=== PATIENT | male | born 1930 | race Caucasian/White ===

== ENCOUNTER 2018-10-25 21:04 | Observation (INO) ==
[2018-10-25 21:48] LABS: Basophils % 0.3 %; Eosinophils # 0.1 K/mcL (0.0-0.6); Eosinophils % 0.7 %; Hematocrit 38.3 % (37.5-50.1); Hemoglobin 12.8 g/dL (12.9-16.9); Immature Granulocytes % 1.9 % (0-4); Lymphocytes # 1.8 K/mcL (0.6-4.6); Lymphocytes % 25.9 %; Mean Corpuscular HGB Conc 33.4 g/dL (31.6-35.5); Mean Corpuscular Hemoglobin 31.1 pg (28.0-33.3); Mean Platelet Volume 8.6 fL (9.4-12.4); Monocytes # 1.2 K/mcL (0.0-1.3); Neutrophils # 3.7 K/mcL (1.6-8.9); Platelet Count 256 K/mcL (140-400); Red Blood Count 4.12 M/mcL (4.19-5.50); Red Cell Distribution Width 12.2 % (11.5-14.5); Segmented Neutrophils % 54.2 %; White Blood Count 6.8 K/mcL (4.3-11.1)
[2018-10-25 21:55] LABS: INR 1.1; Prothrombin Time 12.4 Seconds (9.4-12.1)
[2018-10-25 21:57] LABS: Activated Partial Thrombo Time 36.6 Seconds (26.0-36.0)
[2018-10-25 22:10] LABS: Alanine Aminotransferase 20 Units/L (7-52); Albumin 4.2 g/dL (3.5-5.7); Albumin/Globulin Ratio 1.2 (1.1-2.2); Alkaline Phosphatase 122 Units/L (34-104); Aspartate Amino Transferase 20 Units/L (13-39); BUN/Creatinine Ratio 14 (6-26); Bilirubin,Direct 0.1 mg/dL (0.0-0.2); Bilirubin,Indirect 0.5 mg/dL (0.0-1.2); Bilirubin,Total 0.6 mg/dL (0.3-1.0); Blood Urea Nitrogen 25 mg/dL (8-23); Calcium 9.2 mg/dL (8.6-10.3); Carbon Dioxide 25 mEq/L (23-29); Chloride 98 mEq/L (98-107); Globulin 3.4 g/dL (2.4-3.5); Glucose 101 mg/dL (70-105); Magnesium 1.9 mg/dL (1.6-2.6); Osmolality,Calculated 287 (280-300); Phosphorous 2.6 mg/dL (2.7-4.5); Potassium 4.5 mEq/L (3.5-5.1); Sodium 136 mEq/L (136-145); Total Protein 7.6 g/dL (6.4-8.9); Troponin I < 0.03 ng/mL (< 0.04); eGFR For African Americans 44 (> 60); eGFR For Non-African Americans 36 (> 60)
--- NOTE | 2018-10-25 23:28 | Emergency Department Note ---
Disposition Clinical Impression: Hypoxia Fever Qualifiers: Fever type: unspecified Qualified Code(s): R50.9 - Fever, unspecified Fatigue Qualifiers: Fatigue type: unspecified Qualified Code(s): R53.83 - Other fatigue Disposition: Admitted As Inpatient Condition: Good Time of Disposition: 02:07 General Adult HPI - General Chief complaint: ED Urogenital-Male Stated complaint: fever, urinary symptoms Time Seen by Provider: 10/25/18 21:09 Source: patient, family Mode of arrival: private vehicle Limitations: no limitations Nursing Notes Reviewed: Yes Vital Signs Reviewed: Yes - History of Present Illness HPI Narrative: 87-year-old male with past medical history of prostate disease, recently diagnosed with a UTI approximately 1 week ago placed on Keflex, states that he has felt weak, feverish, and extremely fatigued. Patient states he has been sleeping upwards of 20 hours a day. Patient is concerned that he may have an infection, and at bedside says he has not really been acting like himself. Patient is complaining of fevers at home, not being able to do his normal activities. Pain Scale: 2 - Related Data Home Medications Medication Instructions Recorded Confirmed Ascorbic Acid [Vitamin C] 1 tab PO DAILY 10/26/18 10/26/18 Cholecalciferol (D-3) [Vitamin D] 5,000 unit PO DAILY 10/26/18 10/26/18 Fexofenadine/Pseudoephedrine 1 each PO DAILY 10/26/18 10/26/18 [Rosamaria-D 24 Hour Tablet] Gemfibrozil [Lopid] 600 mg PO DAILY 10/26/18 10/26/18 Lisinopril [Zestril] 40 mg PO HS 10/26/18 10/26/18 [place]-3/Dha/Epa/Fish Oil [[place] 3 1 tab PO DAILY 10/26/18 10/26/18 500 Softgel] Saw [place] Fruit [Saw [place]] 450 mg PO DAILY 10/26/18 10/26/18 Selenium 100 mcg PO DAILY 10/26/18 10/26/18 Tamsulosin HCl [Flomax] 0.4 mg PO DAILY 10/26/18 10/26/18 Ubidecarenone [Co Q-10] 100 mg PO DAILY 10/26/18 10/26/18 Vitamin E 400 unit PO DAILY 10/26/18 10/26/18 Allergies Allergy/AdvReac Type Severity Reaction Status Date / Time morphine AdvReac Hallucinati Verified 10/25/18 21:07 ng Review of Systems: In addition to that documented in the HPI above, the additional ROS was obtained: Constitutional: Reports fevers and chills and fatigue Eyes: Denies vision changes ENMT: Denies sore throat CV: Denies chest pain Resp: Reports exertional SOB GI: Denies vomiting or diarrhea : Denies painful urination Reports difficulty initiating stream, chronic MSK: Denies recent trauma Skin: Denies new rashes Neuro: Denies new numbness or tingling or weakness Endocrine: Denies unexpected weight loss Heme: Denies bleeding disorders Past Medical History - Past Medical History Attestation: Yes The following information was validated with the patient. Medical history: Reports: cancer, hypertension, renal disease, other Psychiatric history: Reports: no psych history - Social History Smoking Status: Never smoker Alcohol use: Reports: none Drug use: Reports: none Physical Exam General: A&O x 3. No acute distress. Well developed, well nourished. Head: atraumatic, normocephalic. ENT: No conjunctival injection, no scleral icterus. PERRLA. EOMI. Oropharynx non- erythematous. mucous membranes moist. Neuro: No focal deficits, no speech deficit, no facial droop, mentating well. BUE/BLE Str 5/5. Pulm: Lungs CTAB A/P. No wheezes, rales, ronchi. Cardio: RRR no m/r/g. Chest not tender to palpation. Abd: Soft, non-distended. Normoactive bowel sounds. Non-tender to palpation. No guarding. Non rigid. Extremities: Radial pulses 2+ mouna, dorsalis pedis/posterior tibialis 2+ mouna. No LE edema. No cyanosis, clubbing. Skin: warm, dry, intact. No rashes. Psych: Appropriate mood and affect. Answers questions appropriately. Cooperative with exam. - General Limitations: no limitations General appearance: alert, in no apparent distress Course Vital Signs Temperature 100.4 F H 10/25/18 21:05 Pulse Rate 105 10/25/18 21:05 Respiratory Rate 20 10/25/18 21:05 Blood Pressure 157/76 10/25/18 21:05 O2 Sat by Pulse Oximetry 94 10/25/18 21:05 Temperature 97.8 F 10/26/18 02:57 Pulse Rate 94 10/26/18 02:57 Respiratory Rate 19 10/26/18 02:57 Blood Pressure 173/77 10/26/18 02:57 O2 Sat by Pulse Oximetry 92 10/26/18 02:57 Oxygen Delivery Oxygen Delivery Room Air Medical Decision Making - MDM Narrative Medical decision making narrative: Despite patient's complaint that he had a urinary tract infection a week ago, his urine did not show any signs concerning for infection. Patient's chest x- ray was not read as having any pneumonia, however there is an opacity in the left lower lobe and a blunting of the cardiac silhouette that is concerning for either pneumonia, or pleural effusion. Given patient's tachycardia, fever, gen eralized fatigue, advanced age it was thought that he would benefit from further workup as an inpatient. Patient was given 1 L of fluids while in the department, acetaminophen. Patient was admitted to the hospitalist Dr. Rangel who agreed to accept the patient to her service. Patient was given an opportunity to ask questions at bedside and all of their concerns were addressed. Patient verbalized understanding and agreement with plan of care. Pt remained stable while in the department. - Medical Records Medical records reviewed: Yes I reviewed the patient's medical records. - Lab Data Lab results reviewed: Yes I reviewed the patient's lab results. Result diagrams: 10/25/18 21:37 10/25/18 21:37 Lab Results 10/25/18 10/25/18 10/25/18 Range/Units 21:37 21:37 21:37 WBC 6.8 (4.3-11.1) K/mcL RBC 4.12 L (4.19-5.50) M/mcL Hgb 12.8 L (12.9-16.9) g/dL Hct 38.3 (37.5-50.1) % MCV 93.0 (83.0-100.0) fL MCH 31.1 (28.0-33.3) pg MCHC 33.4 (31.6-35.5) g/dL RDW 12.2 (11.5-14.5) % Plt Count 256 (140-400) K/mcL MPV 8.6 L (9.4-12.4) fL Immature Gran % 1.9 (0-4) % Seg Neutrophils % 54.2 % Lymphocytes % 25.9 % Monocytes % 17.0 % Eosinophils % 0.7 % Basophils % 0.3 % Neutrophils # 3.7 (1.6-8.9) K/mcL Lymphocytes # 1.8 (0.6-4.6) K/mcL Monocytes # 1.2 (0.0-1.3) K/mcL Eosinophils # 0.1 (0.0-0.6) K/mcL Basophils # 0.0 (0.0-0.2) K/mcL PT 12.4 H (9.4-12.1) Seconds INR 1.1 APTT 36.6 H (26.0-36.0) Seconds Sodium 136 (136-145) mEq/L Potassium 4.5 (3.5-5.1) mEq/L Chloride 98 (98-107) mEq/L Carbon Dioxide 25 (23-29) mEq/L BUN 25 H (8-23) mg/dL Creatinine 1.79 H (0.70-1.30) mg/dL Est GFR ( Amer) 44 L (> 60) Est GFR (Non-Af Amer) 36 L (> 60) BUN/Creatinine Ratio 14 (6-26) Glucose 101 (70-105) mg/dL Calculated Osmolality 287 (280-300) Lactic Acid (0.5-2.2) mmol/L Calcium 9.2 (8.6-10.3) mg/dL Phosphorus 2.6 L (2.7-4.5) mg/dL Magnesium 1.9 (1.6-2.6) mg/dL Total Bilirubin 0.6 (0.3-1.0) mg/dL Direct Bilirubin 0.1 (0.0-0.2) mg/dL Indirect Bilirubin 0.5 (0.0-1.2) mg/dL AST 20 (13-39) Units/L ALT 20 (7-52) Units/L Alkaline Phosphatase 122 H (34-104) Units/L Troponin I < 0.03 (< 0.04) ng/mL Serum Total Protein 7.6 (6.4-8.9) g/dL Albumin 4.2 (3.5-5.7) g/dL Globulin 3.4 (2.4-3.5) g/dL Albumin/Globulin Ratio 1.2 (1.1-2.2) Urine Color (Yellow) Urine Clarity (Clear) Urine pH (5.0-8.0) pH Units Ur Specific [place] (1.010-1.025) Urine Protein (Neg-Trace) mg/dL Urine Glucose (UA) (Normal) mg/dL Urine Ketones (Negative) mg/dL Urine Blood (Negative) Urine Nitrite (Negative) Urine Bilirubin (Negative) Urine Urobilinogen (Normal) mg/dL Ur Leukocyte Esterase (Negative) Urine Microscopic RBC (0-3) per hpf Urine Microscopic WBC (0-3) per hpf Ur Squamous Epith Cells (None-Few) per lpf Urine Bacteria (None-Few) per hpf Hyaline Casts (None-Few) per lpf Ur Culture Indicated? (NO) Lyme Total Antibody (Negative) 10/25/18 10/25/18 10/25/18 Range/Units 21:37 21:38 23:02 WBC (4.3-11.1) K/mcL RBC (4.19-5.50) M/mcL Hgb (12.9-16.9) g/dL Hct (37.5-50.1) % MCV (83.0-100.0) fL MCH (28.0-33.3) pg MCHC (31.6-35.5) g/dL RDW (11.5-14.5) % Plt Count (140-400) K/mcL MPV (9.4-12.4) fL Immature Gran % (0-4) % Seg Neutrophils % % Lymphocytes % % Monocytes % % Eosinophils % % Basophils % % Neutrophils # (1.6-8.9) K/mcL Lymphocytes # (0.6-4.6) K/mcL Monocytes # (0.0-1.3) K/mcL Eosinophils # (0.0-0.6) K/mcL Basophils # (0.0-0.2) K/mcL PT (9.4-12.1) Seconds INR APTT (26.0-36.0) Seconds Sodium (136-145) mEq/L Potassium (3.5-5.1) mEq/L Chloride (98-107) mEq/L Carbon Dioxide (23-29) mEq/L BUN (8-23) mg/dL Creatinine (0.70-1.30) mg/dL Est GFR ( Amer) (> 60) Est GFR (Non-Af Amer) (> 60) BUN/Creatinine Ratio (6-26) Glucose (70-105) mg/dL Calculated Osmolality (280-300) Lactic Acid 1.6 (0.5-2.2) mmol/L Calcium (8.6-10.3) mg/dL Phosphorus (2.7-4.5) mg/dL Magnesium (1.6-2.6) mg/dL Total Bilirubin (0.3-1.0) mg/dL Direct Bilirubin (0.0-0.2) mg/dL Indirect Bilirubin (0.0-1.2) mg/dL AST (13-39) Units/L ALT (7-52) Units/L Alkaline Phosphatase (34-104) Units/L Troponin I (< 0.04) ng/mL Serum Total Protein (6.4-8.9) g/dL Albumin (3.5-5.7) g/dL Globulin (2.4-3.5) g/dL Albumin/Globulin Ratio (1.1-2.2) Urine Color Yellow (Yellow) Urine Clarity Clear (Clear) Urine pH 8.0 (5.0-8.0) pH Units Ur Specific [place] 1.022 (1.010-1.025) Urine Protein 100 H (Neg-Trace) mg/dL Urine Glucose (UA) Normal (Normal) mg/dL Urine Ketones Negative (Negative) mg/dL Urine Blood Negative (Negative) Urine Nitrite Negative (Negative) Urine Bilirubin Negative (Negative) Urine Urobilinogen Normal (Normal) mg/dL Ur Leukocyte Esterase Trace H (Negative) Urine Microscopic RBC 3-5 H (0-3) per hpf Urine Microscopic WBC 0-3 (0-3) per hpf Ur Squamous Epith Cells Moderate H (None-Few) per lpf Urine Bacteria None Seen (None-Few) per hpf Hyaline Casts None Seen (None-Few) per lpf Ur Culture Indicated? YES A (NO) Lyme Total Antibody Negative (Negative) - Radiology Data Radiology results reviewed: Yes I reviewed the patient's radiology results. Chest X-Ray 10/26/18 00:28 IMPRESSION: 1. No radiographic finding to account for patient's tachycardia or fever. D/ / Yogesh Phillips MD / Yogesh Phillips MD Interpreting Provider: Yogesh Phillips MD - EKG Data EKG #1 EKG attestation: Yes I reviewed and interpreted this EKG. EKG results narrative: Heart rate 100, rhythm sinus tachycardia, axis left at -33. ND 191, QRS 149 and prolonged, QTC 482. Left bundle branch block noted remains unchanged from previous study dated 10/18/2018. No ST segment elevation consistent with ischemia by sgarbosa criteria.
[2018-10-25 23:58] LABS: Bilirubin,Urine Negative (Negative); Blood,Urine Negative (Negative); Clarity,Urine Clear (Clear); Color,Urine Yellow (Yellow); Glucose,Urine (UA) Normal (Normal); Ketones,Urine Negative (Negative); Leukocyte Esterase,Urine Trace (Negative); Nitrite,Urine Negative (Negative); Protein,Urine 100 mg/dL (Neg-Trace); Specific Gravity,Urine 1.022 (1.010-1.025); Urobilinogen,Urine Normal (Normal)
[2018-10-26] LABS: Bacteria,Urine None Seen per hpf (None-Few); Hyaline Casts,Urine None Seen per lpf (None-Few); Squamous Epithelial Cell,Urine Moderate per lpf (None-Few); WBC,Urine 0-3 per hpf (0-3)
--- NOTE | 2018-10-26 00:49 | Emergency Department Note ---
Disposition Clinical Impression: Hypoxia Fever Qualifiers: Fever type: unspecified Qualified Code(s): R50.9 - Fever, unspecified Fatigue Qualifiers: Fatigue type: unspecified Qualified Code(s): R53.83 - Other fatigue Disposition: Admitted As Inpatient Condition: Good Time of Disposition: 02:07 General Adult HPI - General Chief complaint: ED Urogenital-Male Stated complaint: fever, urinary symptoms Time Seen by Provider: 10/25/18 21:09 Source: patient, family Limitations: no limitations - History of Present Illness Pain Scale: 2 - Related Data Home Medications Medication Instructions Recorded Confirmed Ascorbic Acid [Vitamin C] 1 tab PO DAILY 10/26/18 10/26/18 Cholecalciferol (D-3) [Vitamin D] 5,000 unit PO DAILY 10/26/18 10/26/18 Fexofenadine/Pseudoephedrine 1 each PO DAILY 10/26/18 10/26/18 [[place]-D 24 Hour Tablet] Gemfibrozil [Lopid] 600 mg PO DAILY 10/26/18 10/26/18 Lisinopril [Zestril] 40 mg PO HS 10/26/18 10/26/18 [place]-3/Dha/Epa/Fish Oil [[place] 3 1 tab PO DAILY 10/26/18 10/26/18 500 Softgel] Saw [place] Fruit [Saw [place]] 450 mg PO DAILY 10/26/18 10/26/18 Selenium 100 mcg PO DAILY 10/26/18 10/26/18 Tamsulosin HCl [Flomax] 0.4 mg PO DAILY 10/26/18 10/26/18 Ubidecarenone [Co Q-10] 100 mg PO DAILY 10/26/18 10/26/18 Vitamin E 400 unit PO DAILY 10/26/18 10/26/18 Allergies Allergy/AdvReac Type Severity Reaction Status Date / Time morphine AdvReac Hallucinati Verified 10/25/18 21:07 ng Past Medical History - Past Medical History Medical history: Reports: cancer, hypertension, renal disease, other Psychiatric history: Reports: no psych history - Social History Smoking Status: Never smoker Alcohol use: Reports: none Drug use: Reports: none Physical Exam - General Limitations: no limitations General appearance: alert, in no apparent distress Course Vital Signs Temperature 100.4 F H 10/25/18 21:05 Pulse Rate 105 10/25/18 21:05 Respiratory Rate 20 10/25/18 21:05 Blood Pressure 157/76 10/25/18 21:05 O2 Sat by Pulse Oximetry 94 10/25/18 21:05 Temperature 98.1 F 10/26/18 11:30 Pulse Rate 82 10/26/18 11:30 Respiratory Rate 16 10/26/18 11:30 Blood Pressure 147/71 10/26/18 11:30 O2 Sat by Pulse Oximetry 94 10/26/18 11:30 Oxygen Delivery Oxygen Delivery Room Air Medical Decision Making - Lab Data Result diagrams: 10/26/18 04:12 10/26/18 04:12 Lab Results 10/25/18 10/25/18 10/25/18 Range/Units 21:37 21:37 21:37 WBC 6.8 (4.3-11.1) K/mcL RBC 4.12 L (4.19-5.50) M/mcL Hgb 12.8 L (12.9-16.9) g/dL Hct 38.3 (37.5-50.1) % MCV 93.0 (83.0-100.0) fL MCH 31.1 (28.0-33.3) pg MCHC 33.4 (31.6-35.5) g/dL RDW 12.2 (11.5-14.5) % Plt Count 256 (140-400) K/mcL MPV 8.6 L (9.4-12.4) fL Immature Gran % 1.9 (0-4) % Seg Neutrophils % 54.2 % Lymphocytes % 25.9 % Monocytes % 17.0 % Eosinophils % 0.7 % Basophils % 0.3 % Neutrophils # 3.7 (1.6-8.9) K/mcL Lymphocytes # 1.8 (0.6-4.6) K/mcL Monocytes # 1.2 (0.0-1.3) K/mcL Eosinophils # 0.1 (0.0-0.6) K/mcL Basophils # 0.0 (0.0-0.2) K/mcL PT 12.4 H (9.4-12.1) Seconds INR 1.1 APTT 36.6 H (26.0-36.0) Seconds Sodium 136 (136-145) mEq/L Potassium 4.5 (3.5-5.1) mEq/L Chloride 98 (98-107) mEq/L Carbon Dioxide 25 (23-29) mEq/L BUN 25 H (8-23) mg/dL Creatinine 1.79 H (0.70-1.30) mg/dL Est GFR ( Amer) 44 L (> 60) Est GFR (Non-Af Amer) 36 L (> 60) BUN/Creatinine Ratio 14 (6-26) Glucose 101 (70-105) mg/dL Calculated Osmolality 287 (280-300) Lactic Acid (0.5-2.2) mmol/L Calcium 9.2 (8.6-10.3) mg/dL Phosphorus 2.6 L (2.7-4.5) mg/dL Magnesium 1.9 (1.6-2.6) mg/dL Total Bilirubin 0.6 (0.3-1.0) mg/dL Direct Bilirubin 0.1 (0.0-0.2) mg/dL Indirect Bilirubin 0.5 (0.0-1.2) mg/dL AST 20 (13-39) Units/L ALT 20 (7-52) Units/L Alkaline Phosphatase 122 H (34-104) Units/L Troponin I < 0.03 (< 0.04) ng/mL Serum Total Protein 7.6 (6.4-8.9) g/dL Albumin 4.2 (3.5-5.7) g/dL Globulin 3.4 (2.4-3.5) g/dL Albumin/Globulin Ratio 1.2 (1.1-2.2) Urine Color (Yellow) Urine Clarity (Clear) Urine pH (5.0-8.0) pH Units Ur Specific [place] (1.010-1.025) Urine Protein (Neg-Trace) mg/dL Urine Glucose (UA) (Normal) mg/dL Urine Ketones (Negative) mg/dL Urine Blood (Negative) Urine Nitrite (Negative) Urine Bilirubin (Negative) Urine Urobilinogen (Normal) mg/dL Ur Leukocyte Esterase (Negative) Urine Microscopic RBC (0-3) per hpf Urine Microscopic WBC (0-3) per hpf Ur Squamous Epith Cells (None-Few) per lpf Urine Bacteria (None-Few) per hpf Hyaline Casts (None-Few) per lpf Ur Culture Indicated? (NO) Lyme Total Antibody (Negative) 10/25/18 10/25/18 10/25/18 Range/Units 21:37 21:38 23:02 WBC (4.3-11.1) K/mcL RBC (4.19-5.50) M/mcL Hgb (12.9-16.9) g/dL Hct (37.5-50.1) % MCV (83.0-100.0) fL MCH (28.0-33.3) pg MCHC (31.6-35.5) g/dL RDW (11.5-14.5) % Plt Count (140-400) K/mcL MPV (9.4-12.4) fL Immature Gran % (0-4) % Seg Neutrophils % % Lymphocytes % % Monocytes % % Eosinophils % % Basophils % % Neutrophils # (1.6-8.9) K/mcL Lymphocytes # (0.6-4.6) K/mcL Monocytes # (0.0-1.3) K/mcL Eosinophils # (0.0-0.6) K/mcL Basophils # (0.0-0.2) K/mcL PT (9.4-12.1) Seconds INR APTT (26.0-36.0) Seconds Sodium (136-145) mEq/L Potassium (3.5-5.1) mEq/L Chloride (98-107) mEq/L Carbon Dioxide (23-29) mEq/L BUN (8-23) mg/dL Creatinine (0.70-1.30) mg/dL Est GFR ( Amer) (> 60) Est GFR (Non-Af Amer) (> 60) BUN/Creatinine Ratio (6-26) Glucose (70-105) mg/dL Calculated Osmolality (280-300) Lactic Acid 1.6 (0.5-2.2) mmol/L Calcium (8.6-10.3) mg/dL Phosphorus (2.7-4.5) mg/dL Magnesium (1.6-2.6) mg/dL Total Bilirubin (0.3-1.0) mg/dL Direct Bilirubin (0.0-0.2) mg/dL Indirect Bilirubin (0.0-1.2) mg/dL AST (13-39) Units/L ALT (7-52) Units/L Alkaline Phosphatase (34-104) Units/L Troponin I (< 0.04) ng/mL Serum Total Protein (6.4-8.9) g/dL Albumin (3.5-5.7) g/dL Globulin (2.4-3.5) g/dL Albumin/Globulin Ratio (1.1-2.2) Urine Color Yellow (Yellow) Urine Clarity Clear (Clear) Urine pH 8.0 (5.0-8.0) pH Units Ur Specific [place] 1.022 (1.010-1.025) Urine Protein 100 H (Neg-Trace) mg/dL Urine Glucose (UA) Normal (Normal) mg/dL Urine Ketones Negative (Negative) mg/dL Urine Blood Negative (Negative) Urine Nitrite Negative (Negative) Urine Bilirubin Negative (Negative) Urine Urobilinogen Normal (Normal) mg/dL Ur Leukocyte Esterase Trace H (Negative) Urine Microscopic RBC 3-5 H (0-3) per hpf Urine Microscopic WBC 0-3 (0-3) per hpf Ur Squamous Epith Cells Moderate H (None-Few) per lpf Urine Bacteria None Seen (None-Few) per hpf Hyaline Casts None Seen (None-Few) per lpf Ur Culture Indicated? YES A (NO) Lyme Total Antibody Negative (Negative) Attestation Statement - Attestation Attestation: I examined this patient and my medical decision-making was reviewed with the Resident Physician. I agree with the documented findings, disposition and treatment plan as described except to the extent set forth below. Patient a 7-year-old gentleman who presents to the emergency department with chief complaint of a febrile illness. Patient reports that recently he was diagnosed with a urinary tract infection has been on antibiotics and states that he still feels weak and run down. Patient is awake alert no acute distress he is febrile currently Medical decision management the patient plan is to evaluate the patient for infectious causes and most likely the patient will be admitted
[2018-10-26] MEDS ORDERED: 0.9 % Sodium Chloride 1,000 ML IVC ONE (01:27)
[2018-10-26] MEDS ORDERED: Naloxone 0.4 MG/ML INJ IVP PRN (02:41)
[2018-10-26] MEDS ORDERED: 0.9 % Sodium Chloride 1,000 ML IVC SCH (02:45)
--- NOTE | 2018-10-26 02:45 | Internal Med History&Physical ---
Date of Encounter: 10/26/18 Time of Encounter: 02:45 Internal Medicine - H&P: HPI Chief complaint: Fatigue/subjective fever/chills History of present illness: Mr. Barnett is a 87 year old male with a past medical history of hypertension, arthritis, recurrent tick bites, GERD, peripheral neuropathy and prostate disease who presented to the ED due to symptoms of fatigue, subjective fevers and chills Patient reports she has been sleeping much more recently in up to 20 hours a day, has been having decreased energy, decreased appetite and subjective fever and chills for the past week. Patient states he is normally active and works outside and that this is a significant change for him. Of note patient was seen in the ED on October 18 with a similar presentation. Patient reports that he has recently undergone a change in his antihypertensive regimen in which his hydrochlorothiazide was discontinued on Friday as he reports "it was making me sick", and was replaced with lisinopril 40 mg daily. Patient was also discharged on Keflex for possible UTI. Reports symptoms did not improve after 2 days of Keflex and despite finishing the course of his antibiotics he has not felt any better. No reports of dysuria, frequency or urgency. Patient denies cough, chest pain, shortness of breath, nausea, vomiting, abdominal pain or diarrhea. No reports of rash, lower extremity edema. Patient denies any recent travel or surgery. No history of blood clots. He has a history of skin cancer status post multiple skin excisions. On initial assessment patient had a fever 100.4. Blood pressure 157/76 with a Heart rate 105. Laboratory workup notable for a normal WBC, elevated creatinine which appears to be chronic and at baseline and a normal lactic acid. UA showing trace leukocyte esterase. EKG showed sinus tachycardia, axis left at - 33. RI 191, QRS 149 and prolonged, QTC 482. Left bundle branch block noted remains unchanged from previous study dated 10/18/2018. Chest x-ray was unremarkable. Patient was given a liter bolus. Start patient on ceftriaxone. Urine and blood cultures were obtained. Past Med Surg Social Fam HX - Past Medical History Medical history: cancer, hypertension, renal disease, other Additional medical history: UTI, enlarged prostate Psychiatric history: no psych history - Social History Smoking Status: Never smoker Alcohol use: none Drug use: none Internal Medicine - H&P: Meds Ascorbic Acid [Vitamin C] 1 tab PO DAILY 10/26/18 [History] Cholecalciferol (D-3) [Vitamin D] 5,000 unit PO DAILY 10/26/18 [History] Fexofenadine/Pseudoephedrine [Rosamaria-D 24 Hour Tablet] 1 each PO DAILY 10/26/18 [History] Gemfibrozil [Lopid] 600 mg PO DAILY 10/26/18 [History] Lisinopril [Zestril] 40 mg PO HS 10/26/18 [History] [place]-3/Dha/Epa/Fish Oil [[place] 3 500 Softgel] 1 tab PO DAILY 10/26/18 [History] Saw [place] Fruit [Saw [place]] 450 mg PO DAILY 10/26/18 [History] Selenium 100 mcg PO DAILY 10/26/18 [History] Tamsulosin HCl [Flomax] 0.4 mg PO DAILY 10/26/18 [History] Ubidecarenone [Co Q-10] 100 mg PO DAILY 10/26/18 [History] Vitamin E 400 unit PO DAILY 10/26/18 [History] Allergy/AdvReac Type Severity Reaction Status Date / Time morphine AdvReac Hallucinati Verified 10/25/18 21:07 ng All Systems PM: A 10-system review of systems was performed and is negative for pertinent findings except as documented above in the HPI. - Constitutional Constitutional: no chills, no fever(s), no night sweats - EENT Eyes: no change in vision, no discharge, no pain, no photophobia Ears: no ear discharge, no ear pain, no tinnitus Nose, mouth and throat: no dysphagia, no nasal discharge, no neck pain, no sore throat - Cardiovascular Cardiovascular ROS IM: no chest pain, no diaphoresis, no dyspnea, no lightheadedness, no palpitations, no syncope - Respiratory Respiratory: no cough, no dyspnea, no wheezing, no excessive phlegm production - Gastrointestinal Gastrointestinal: no abdominal pain, no diarrhea, no hematemesis, no hematochezia, no melena, no nausea, no vomiting - Musculoskeletal Musculoskeletal ROS IM: no numbness, no tingling - Integumentary Integumentary IM: no rash, no unusual bruising - Neurological Neurological ROS: no confusion, no convulsions, no focal weakness, no numbness, no tingling, no tremor(s) - Hematologic/Lymphatic Hematologic/Lymphatic: no easy bruising - Constitutional Vitals: Temp Pulse Resp BP Pulse Ox 99.4 F 97 20 131/64 93 10/26/18 02:41 10/26/18 01:04 10/26/18 02:41 10/26/18 02:41 10/26/18 01:04 Exam: General: Alert and oriented Skin:Normal color, no rash, no lesions. HEENT:EOM, pupils equal, round and reactive. Cardiovascular:Normal S1 & S2, no rubs, murmurs or gallops. No JVD. Pulse regular. Lungs:Normal breath sounds, no wheezes or crackles. Abdomen:Soft, non-tender, no rigidity. Extremities:No deformity, no edema or tenderness, no joint swelling or clubbing. Neurological:Normal cognition and motor skills. Pulses:Carotid and radial pulses normal +2. Rest of the physical exam is non contributory Internal Med - H&P Results - Labs CBC & Chem 7: 10/26/18 04:12 10/25/18 21:37 Labs: Short CBC 10/25/18 Range/Units 21:37 WBC 6.8 (4.3-11.1) K/mcL Hgb 12.8 L (12.9-16.9) g/dL Hct 38.3 (37.5-50.1) % Plt Count 256 (140-400) K/mcL Neutrophils # 3.7 (1.6-8.9) K/mcL BMP 10/25/18 21:37 Sodium 136 Potassium 4.5 Chloride 98 Carbon Dioxide 25 BUN 25 H Creatinine 1.79 H Glucose 101 Calcium 9.2 Cardiac Enzymes 10/25/18 Range/Units 21:37 Troponin I < 0.03 (< 0.04) ng/mL Liver Function 10/25/18 Range/Units 21:37 Total Bilirubin 0.6 (0.3-1.0) mg/dL Direct Bilirubin 0.1 (0.0-0.2) mg/dL AST 20 (13-39) Units/L ALT 20 (7-52) Units/L Alkaline Phosphatase 122 H (34-104) Units/L Albumin 4.2 (3.5-5.7) g/dL Urine 10/25/18 Range/Units 23:02 Urine Color Yellow (Yellow) Urine Clarity Clear (Clear) Urine pH 8.0 (5.0-8.0) pH Units Ur Specific [place] 1.022 (1.010-1.025) Urine Protein 100 H (Neg-Trace) mg/dL Urine Glucose (UA) Normal (Normal) mg/dL - Impressions ITS Impressions Chest X-Ray 10/26/18 00:28 IMPRESSION: 1. No radiographic finding to account for patient's tachycardia or fever. D/ / Yogesh Phillips MD / Yogesh Phillips MD Interpreting Provider: Yogesh Phillips MD - Assessment and Plan (1) Fever Current Visit: Yes Status: Acute Assessment and plan: Patient presented with fever 100.4 in the setting of fatigue, subjective fever and chills. Recent treatment for possible UTI with Keflex and completed course. No reports of respiratory symptoms or diarrhea. Abdominal exam benign. No leukocytosis. UA weekly positive. Chest x-ray was unremarkable. Found to be mildly tachycardic. Trace leukocyte esterase on UA. Possible UTI though patient denies any symptoms of dysuria frequency or urgency. Low suspicion for UTI, however at this time have no other source of infection aside from possible tickborne illness given patient's recurrent tick bites and slight drop in hemoglobin. Patient also reporting reaction to hydrochlorothiazide which has since been significant discontinued, however symptoms appear to have began prior to initiation of this medication. Consider noninfectious etiology as well. -We will transition patient to IV ceftriaxone. -Follow-up urine and blood cultures. -Consult to infectious disease. Qualifiers: Fever type: unspecified Qualified Code(s): R50.9 - Fever, unspecified (2) Fatigue Current Visit: Yes Status: Acute Assessment and plan: Patient presenting with increased fatigue suspect secondary to underlying infectious etiology, possible UTI. Patient's hemoglobin has dropped from 14.1- 12.8 since October 18. Patient denies melena or hematochezia. Reports last colonoscopy was several years ago. Consider tick borne illness. -Continue supportive care -Guaiac stool -We will check TSH -Antibiotics. Qualifiers: Fatigue type: unspecified Qualified Code(s): R53.83 - Other fatigue (3) Dahfo-ng-qnaroiv kidney injury Current Visit: Yes Status: Acute Assessment and plan: Possible acute on chronic kidney injury likely secondary to medication side effect. Patient presents with a creatinine of 1.79. Baseline appears near 1.7. Patient recently discontinued hydrochlorothiazide and his lisinopril dose was increased from 10-40 mg. -Continue supportive fluids/gentle hydration -Hold lisinopril for now. Qualifiers: Chronic kidney disease stage: unspecified stage Qualified Code(s): N17.9 - Acute kidney failure, unspecified; N18.9 - Chronic kidney disease, unspecified (4) Hypertension Current Visit: Yes Status: Acute Assessment and plan: Blood pressure currently stable. Currently holding lisinopril in the setting of mild acute on chronic kidney injury. -Continue fluids. -Blood pressure control as needed Qualifiers: Hypertension type: essential hypertension Qualified Code(s): I10 - Essential (primary) hypertension (5) Sepsis Current Visit: Yes Status: Acute Assessment and plan: Patient meeting 2 of 4 SIRS criteria with fever and tachycardia. Lactic acid within normal limits. Patient received fluid bolus in the ED. Patient non- septic in appearance and is otherwise hemodynamically stable. -Continue supportive fluids -Continue antibiotics as above Qualifiers: Sepsis type: sepsis due to unspecified organism Qualified Code(s): A41.9 - Sepsis, unspecified organism (6) DVT prophylaxis Current Visit: Yes Status: Acute Assessment and plan: Subcutaneous heparin - Time Spent With Patient Total time spent is greater than 50% in coordination of care (as documented) at patient's floor/unit and/or counseling patient:
[2018-10-26] MEDS ORDERED: cefTRIAXone 1,000 MG in Water for inj. (sterile) 10 ML IVP ONE (03:21)
[2018-10-26] MEDS: *HR* Heparin 5,000 UNIT/ML VIAL SQ SCH ×3 (05:25→21:06)
[2018-10-26 05:47] LABS: Hematocrit 35.8 % (37.5-50.1); Hemoglobin 11.8 g/dL (12.9-16.9); Mean Corpuscular Hemoglobin 31.5 pg (28.0-33.3); Mean Corpuscular Volume 95.5 fL (83.0-100.0); Mean Platelet Volume 8.8 fL (9.4-12.4); Platelet Count 250 K/mcL (140-400); Red Blood Count 3.75 M/mcL (4.19-5.50); Red Cell Distribution Width 12.1 % (11.5-14.5); White Blood Count 6.2 K/mcL (4.3-11.1)
[2018-10-26 06:14] LABS: Albumin 3.7 g/dL (3.5-5.7); Albumin/Globulin Ratio 1.2 (1.1-2.2); Bilirubin,Total 0.6 mg/dL (0.3-1.0); Calcium 8.5 mg/dL (8.6-10.3); Globulin 3.2 g/dL (2.4-3.5); Potassium 4.2 mEq/L (3.5-5.1); Total Protein 6.9 g/dL (6.4-8.9)
[2018-10-26 06:19] LABS: Thyroid Stimulating Hormone 2.589 mcIU/mL (0.340-5.600)
[2018-10-26] MEDS ORDERED: OMEGA PO SCH (09:00)
[2018-10-26] MEDS ORDERED: (Saw Palmetto Fruit [Saw Palmetto] 450 MG) PO SCH (09:00)
[2018-10-26] MEDS ORDERED: EPA PO SCH (09:00)
[2018-10-26] MEDS ORDERED: SELENIUM 100 MCG PO SCH (09:00)
[2018-10-26] MEDS ORDERED: DHA PO SCH (09:00)
[2018-10-26] MEDS ORDERED: (Ubidecarenone [Co Q-10] 100 MG) PO SCH (09:00)
[2018-10-26] MEDS ORDERED: FISH OIL PO SCH (09:00)
[2018-10-26] MEDS: Ascorbic Acid 500 MG TABLET PO SCH (09:40)
[2018-10-26] MEDS: Cholecalciferol (D-3) 1,000 UNIT TABLET PO SCH (09:41)
--- NOTE | 2018-10-26 13:09 | Infectious Disease Consult ---
Infectious Disease-Consult - Encounter Date/Time Date of Encounter: 10/26/18 Time of Encounter: 13:55 - Data of Consult Requesting Physician: Harish García Primary Care Provider: PCP NONE - HPI HPI: Mr. Ohara is a 88-year-old male past medical history of hypertension, hyperlipidemia, chronic neck pain, BPH and chronic neuropathy of both lower extremities presented to the ER because of generalized weakness, decreased appetite and extreme somnolence to the point of sleeping 20 hours a day. 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 He takes of Flomax and follows up with urology on an annual basis . He also follows up with dermatology regularly for basal and squamous cell carcinoma. He was seen in our ER not too long ago in September when he came with similar presentation of fatigue, malaise and low-grade fever with maximum temperature 100.1 degrees Fahrenheit. Urinalysis back then showed 3-5 white blood cells per high-power field as a trace leukocyte esterase. There were also findings of thickened bladder wall. Patient's urine, blood culture was normal Patient was discharged on keflex and he endorses finishing the entire course of Keflex. Per the notes from the [facility] patient felt somewhat better and increase fluid intake and had diminished fever. Most recent labs patient was also found to have low iron levels and prescription for iron supplements were given. He endorses right after going home patient had similar symptoms which relapsed in 2 days and he was extremely somnolent with diminished appetite. However, he endorses no urinary symptoms like dysuria, hematuria or superpubic pain. He also denies any systemic signs like fever, cough, shortness of breath, vomiting diarrhea and nausea. Initial workup in the ER patient met 2/4 SIRS criteria with fever and tachycardia with HR of 105. Normal WBC, high creatinine at 1.83 (baseline is 1.79). She was positive for trace leukocyte esterase. Patient's EKG sinus tachycardia, axis left at -33. [place] 191, QRS 149 and prolonged, QTC 482. Left bundle branch block noted remains unchanged from previous study dated 10/18/2018. He was given a liter of bolus was started on Ceftriaxone . - Results CBC & Chem 7: 10/26/18 04:12 10/26/18 13:32 - Exam Vitals: Temp Pulse Resp BP Pulse Ox 98.1 F 82 16 147/71 94 10/26/18 11:30 10/26/18 11:30 10/26/18 11:30 10/26/18 11:30 10/26/18 11:30 Exam: Gen.: Vitals noted. No acute distress. Alert, awake and oriented * [address], [address], and time, well developed, well-nourished resting comfortably in bed. Pleasant. HEENT: oropharynx clear, Normocephalic, atraumatic, MMM Neck: supple, no JVD, no lymphadenopathy, no carotid bruit. Cardiac: RRR, no murmur, +S1/S2, No BLE edema, PMI non-displaced Pulmonary: CTA bilaterally, no wheezes, rales or rhonchi, equal chest expansion, unlabored breathing Abdomen: soft, nontender, BS noted, no guarding, mildly distended. No organomegaly, no pulsatile masses, Skin: warm and dry, no visible lesions. Feels warm, clammy, no rashes, no lesions, no erythema MSK: ROM not assessed. no joint swelling noted, gait not assessed while in bed. Non tender calf or clubbing, no cyanosis/clubbing/ or edema Neuro: A&O, moves all extremities, no focal deficits, sensation intact Psych: Appropriate mood and behavior, normal speech, no dysarthria. Ascorbic Acid [Vitamin C] 1 tab PO DAILY 10/26/18 [History] Cholecalciferol (D-3) [Vitamin D] 5,000 unit PO DAILY 10/26/18 [History] Fexofenadine/Pseudoephedrine [Rosamaria-D 24 Hour Tablet] 1 each PO DAILY 10/26/18 [History] Gemfibrozil [Lopid] 600 mg PO DAILY 10/26/18 [History] Lisinopril [Zestril] 40 mg PO HS 10/26/18 [History] [place]-3/Dha/Epa/Fish Oil [[place] 3 500 Softgel] 1 tab PO DAILY 10/26/18 [History] Saw [place] Fruit [Saw [place]] 450 mg PO DAILY 10/26/18 [History] Selenium 100 mcg PO DAILY 10/26/18 [History] Tamsulosin HCl [Flomax] 0.4 mg PO DAILY 10/26/18 [History] Ubidecarenone [Co Q-10] 100 mg PO DAILY 10/26/18 [History] Vitamin E 400 unit PO DAILY 10/26/18 [History] Allergy/AdvReac Type Severity Reaction Status Date / Time morphine AdvReac Kylieinati Verified 10/25/18 21:07 ng - Assessment and Plan (1) Fever Current Visit: Yes Status: Acute -Patient presents to the hospital with fever of 100.4 along with the subjective chills. -Patient's chest x-ray was negative for any cardio pulmonary pathology -He denies any recent travels or sick contacts -Patient's UA showed trace amount of leukocyte esterase with urine protein of 10 PLAN: -ESR, CRP and procalcitonin pending -Blood culture and urine culture pending Qualifiers: Fever type: unspecified Qualified Code(s): R50.9 - Fever, unspecified SNOMED Code(s): 838259387 (2) Fatigue Current Visit: Yes Status: Acute -Patient presents to the hospital because of generalized weakness, fatigue decreased appetite and extreme somnolence for the past few days -Patient was recently diagnosed with trace amount of leukocyte esterase in the urine and was treated for UTI using Keflex. Patient's hemoglobin had dropped from 14.1-12.8 since October 18. -Patient denies any recent weight loss or night sweats. PLAN: -Will order estevez CT of chest ,abdomen and pelvis to rule out any masses or malignancy Qualifiers: Fatigue type: unspecified Qualified Code(s): R53.83 - Other fatigue SNOMED Code(s): 13397162 (3) CKD (chronic kidney disease) Current Visit: Yes Status: Acute - Patient has a history of CKD -On Admission patient's creatinine was 1.79 , which is his baseline - Renally dose medications and avoid nephrotoxic agents. -Follow up with nephrology as an outpatient SNOMED Code(s): 045734219 (4) Hypertension Current Visit: Yes Status: Acute Patient has a history of hypertension He takes lisinopril as his home medication but currently we are holding the medicine because of his acute on chronic kidney injury Start antihypertensives when able Qualifiers: Hypertension type: essential hypertension Qualified Code(s): I10 - Essential (primary) hypertension SNOMED Code(s): 26225105 Past Med Surg Social Fam HX - Past Medical History Medical history: cancer, hypertension, renal disease, other Additional medical history: Neuropathy, macular degeneration. Psychiatric history: no psych history - Past Surgical History Surgical History: hip replacement, orthopedic, other Additional surgical history: left shoulder X2, bilateral hips, right knee - Social History Smoking Status: Never smoker Smokeless Tobacco Status: No Alcohol use: none Drug use: none Consult Discharge Plan - Plan Referrals: Katie Ladd CNP [Advanced Practice Nurse] - 10/28/18 12:30 pm (Please follow up as schedule...) NONE,PCP [Primary Care Provider] - Wilman Good MD [Partnered Physician] - 11/04/18 2:30 pm (Please follow up as schedule...)
[2018-10-26 14:23] LABS: Calcium 8.6 mg/dL (8.6-10.3); Potassium 4.6 mEq/L (3.5-5.1)
[2018-10-26] MEDS ORDERED: Isovue-370 500 ML BOTTLE IVP ONE (17:12)
--- NOTE | 2018-10-26 17:14 | Discharge Summary ---
Orders not resulted at time of discharge: Pending orders 10/25/18 21:22 ECG 12 lead ECG [ECG] Stat 10/25/18 21:38 Culture,Blood [BC] Stat 10/25/18 23:02 Culture,Urine [RM] Stat 10/26/18 05:24 Fecal Hemoccult [Occult Blood,Stool] [BF] Routine Date of Encounter: 10/26/18 Time of Encounter: 16:42 - Discharge Diagnosis (1) Prostatitis, unspecified Priority: Primary Status: Acute Qualifiers: Prostatitis type: acute Qualified Code(s): N41.0 - Acute prostatitis (2) Fatigue Priority: Secondary Status: Acute Qualifiers: Fatigue type: unspecified Qualified Code(s): R53.83 - Other fatigue Hospital course: Mr. Barnett is a 87 year old male - Time Spent with Patient Total time spent providing and/or coordinating discharge services: - Discharge Medications Prescriptions: Continued Cholecalciferol (D-3) [Vitamin D] 5,000 unit PO DAILY Vitamin E 400 unit PO DAILY Ubidecarenone [Co Q-10] 100 mg PO DAILY Tamsulosin HCl [Flomax] 0.4 mg PO DAILY Selenium 100 mcg PO DAILY Saw [place] Fruit [Saw [place]] 450 mg PO DAILY [place]-3/Dha/Epa/Fish Oil [[place] 3 500 Softgel] 1 tab PO DAILY Lisinopril [Zestril] 40 mg PO HS Gemfibrozil [Lopid] 600 mg PO DAILY Fexofenadine/Pseudoephedrine [Rosamaria-D 24 Hour Tablet] 1 each PO DAILY Ascorbic Acid [Vitamin C] 1 tab PO DAILY Home Medications: Ascorbic Acid [Vitamin C] 1 tab PO DAILY 10/26/18 [History] Cholecalciferol (D-3) [Vitamin D] 5,000 unit PO DAILY 10/26/18 [History] Fexofenadine/Pseudoephedrine [Rosamaria-D 24 Hour Tablet] 1 each PO DAILY 10/26/18 [History] Gemfibrozil [Lopid] 600 mg PO DAILY 10/26/18 [History] Lisinopril [Zestril] 40 mg PO HS 10/26/18 [History] [place]-3/Dha/Epa/Fish Oil [[place] 3 500 Softgel] 1 tab PO DAILY 10/26/18 [History] Saw [place] Fruit [Saw [place]] 450 mg PO DAILY 10/26/18 [History] Selenium 100 mcg PO DAILY 10/26/18 [History] Tamsulosin HCl [Flomax] 0.4 mg PO DAILY 10/26/18 [History] Ubidecarenone [Co Q-10] 100 mg PO DAILY 10/26/18 [History] Vitamin E 400 unit PO DAILY 10/26/18 [History] Allergies/Adverse Reactions: Allergy/AdvReac Type Severity Reaction Status Date / Time morphine AdvReac Hallucinati Verified 10/25/18 21:07 ng Date of admission: 10/26/18 02:10 Primary care physician: PCP NONE Consults: 10/26/18 05:18 Consult to Infectious Diseases [CONS] Routine Consulting Provider: Infectious Disease Samina Reason for Consult: Fever of unknown origin Call Completed: No - Constitutional Vitals: Temp Pulse Resp BP Pulse Ox 98.7 F 87 16 156/69 93 10/26/18 15:56 10/26/18 15:56 10/26/18 15:56 10/26/18 15:56 10/26/18 15:56 - Patient Status Condition: Good - Discharge Instructions Follow Up With: Katie Ladd SECURITY TEAM LEAD [Advanced Practice Nurse] - 10/28/18 12:30 pm (Please follow up as schedule...) NONE,PCP [Primary Care Provider] - Wilman Good MD [Partnered Physician] - 11/04/18 2:30 pm (Please follow up as schedule...)
--- NOTE | 2018-10-26 19:25 | Internal Med Progress Note ---
Hospitalist Progress Note - Encounter Date of Encounter: 10/26/18 Time of Encounter: 19:23 - Subjective Interval History: Patient actually feeling better after 12 hours of IV antibiotics and no longer has fatigue. Workup so less far very underwhelming. ID recommending estevez-scan. - Exam Vitals: Temp Pulse Resp BP Pulse Ox 98.7 F 87 16 156/69 93 10/26/18 15:56 10/26/18 15:56 10/26/18 15:56 10/26/18 15:56 10/26/18 15:56 Exam: General: Ill-appearing and in no acute distress HEENT: No erythema of posterior pharynx. No exudates. Lymphatics: No mandibular or cervical lymphadenopathy Cardiovascular: RRR. No murmurs. No chest wall tenderness. Lungs: Clear to auscelltation bilaterally. Regular chest rise. Abdomen: Non-tender. No rebound or gaurding. Nl bowel sounds. Extremities: No edema. 2+ pulses radial and pedal pulses Skin: No rahses, abrasions, or contusions. Nl cap refill. : No prostate tenderness Psych: Nl attention. 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 5/5 strength. Sensation to light touch and pinprick intact. - Assessment and Plan (1) Fever Current Visit: Yes Status: Acute Assessment and Plan: Patient with remote history of prostatitis presents with 1-2 weeks of severe fatigue and fever in the setting of UA with trace amount of leuk esterase but otherwise negative workup to date including blood cultures, CBC, CMP, CXR. -Discussed with patient's urologist because apparently patient had an episode like this before in 2013. Unimpressed with prostatitis diagnosis -Discussed with ID recommend estevez scan, CRP, ESR, follow cultures PLAN: - CT chest abdomen and pelvis - ESR and CRP - Follow cultures - ID consultation appreciate recommendations (2) Fatigue Current Visit: Yes Status: Acute Assessment and Plan: See above (3) GARCIA (acute kidney injury) Current Visit: Yes Status: Acute Assessment and Plan: Likely prerenal given suspicion for infectious process and improvement with IVF (4) CKD (chronic kidney disease) Current Visit: Yes Status: Acute (5) Hypertension Current Visit: Yes Status: Acute Assessment and Plan: Hold lisinopril and setting of GARCIA - Time Spent with Patient Total time spent is greater than 50% in coordination of care (as documented) at patient's floor/unit and/or counseling patient: Greater than 35 minutes Plan of Care Discussed with: patient Internal Medicine: Result - Labs CBC & Chem 7: 10/26/18 04:12 10/26/18 13:32 Labs: Short CBC 10/25/18 10/26/18 Range/Units 21:37 04:12 WBC 6.8 6.2 (4.3-11.1) K/mcL Hgb 12.8 L 11.8 L (12.9-16.9) g/dL Hct 38.3 35.8 L (37.5-50.1) % Plt Count 256 250 (140-400) K/mcL Neutrophils # 3.7 (1.6-8.9) K/mcL BMP 10/25/18 10/26/18 10/26/18 21:37 04:12 13:32 Sodium 136 138 137 Potassium 4.5 4.2 4.6 Chloride 98 101 103 Carbon Dioxide 25 24 26 BUN 25 H 24 H 24 H Creatinine 1.79 H 1.83 H 1.60 H Glucose 101 113 H 126 H Calcium 9.2 8.5 L 8.6 Cardiac Enzymes 10/25/18 Range/Units 21:37 Troponin I < 0.03 (< 0.04) ng/mL Liver Function 10/25/18 10/26/18 Range/Units 21:37 04:12 Total Bilirubin 0.6 0.6 (0.3-1.0) mg/dL Direct Bilirubin 0.1 (0.0-0.2) mg/dL AST 20 17 (13-39) Units/L ALT 20 17 (7-52) Units/L Alkaline Phosphatase 122 H 107 H (34-104) Units/L Albumin 4.2 3.7 (3.5-5.7) g/dL Urine 10/25/18 Range/Units 23:02 Urine Color Yellow (Yellow) Urine Clarity Clear (Clear) Urine pH 8.0 (5.0-8.0) pH Units Ur Specific [place] 1.022 (1.010-1.025) Urine Protein 100 H (Neg-Trace) mg/dL Urine Glucose (UA) Normal (Normal) mg/dL - ABG Interpretation ABG results: PT/INR, D-dimer PT 12.4 Seconds (9.4-12.1) H 10/25/18 21:37 - Impressions Impressions Chest X-Ray 10/26/18 00:28 IMPRESSION: 1. No radiographic finding to account for patient's tachycardia or fever. D/ / Yogesh Phillips MD / Yogesh Phillips MD Interpreting Provider: Yogesh Phillips MD Consult Discharge Plan - Plan Referrals: Katei Ladd CNP [Advanced Practice Nurse] - 10/28/18 12:30 pm (Please follow up as schedule...) NONE,PCP [Primary Care Provider] - Wilman Good MD [Partnered Physician] - 11/04/18 2:30 pm (Please follow up as schedule...) (1) Fever Qualifiers: Fever type: unspecified Qualified Code(s): R50.9 - Fever, unspecified (2) Fatigue Qualifiers: Fatigue type: unspecified Qualified Code(s): R53.83 - Other fatigue (5) Hypertension Qualifiers: Hypertension type: essential hypertension Qualified Code(s): I10 - Essential (primary) hypertension
[2018-10-26] MEDS ORDERED: Lisinopril 20 MG TABLET PO SCH (21:00)
--- NOTE | 2018-10-26 23:10 | Electrocardiograph Report ---
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
[2018-10-27] MEDS: *HR* Heparin 5,000 UNIT/ML VIAL SQ SCH (04:55)
[2018-10-27 06:58] LABS: Hematocrit 35.2 % (37.5-50.1); Hemoglobin 11.7 g/dL (12.9-16.9); Mean Corpuscular HGB Conc 33.2 g/dL (31.6-35.5); Mean Corpuscular Hemoglobin 31.1 pg (28.0-33.3); Mean Corpuscular Volume 93.6 fL (83.0-100.0); Mean Platelet Volume 8.5 fL (9.4-12.4); Platelet Count 230 K/mcL (140-400); Red Blood Count 3.76 M/mcL (4.19-5.50); Red Cell Distribution Width 12.3 % (11.5-14.5); White Blood Count 6.5 K/mcL (4.3-11.1)
[2018-10-27 07:18] LABS: Calcium 8.7 mg/dL (8.6-10.3); Potassium 4.9 mEq/L (3.5-5.1)
[2018-10-27] MEDS: Cholecalciferol (D-3) 1,000 UNIT TABLET PO SCH (09:16)
[2018-10-27] MEDS: Ascorbic Acid 500 MG TABLET PO SCH (09:17)
--- NOTE | 2018-10-27 10:40 | Discharge Summary ---
Orders not resulted at time of discharge: Pending orders 10/25/18 21:38 Culture,Blood [BC] Stat 10/25/18 23:02 Culture,Urine [RM] Stat 10/26/18 05:24 Fecal Hemoccult [Occult Blood,Stool] [BF] Routine 10/27/18 09:50 Tissue Transglutaminase Ab,IgA Routine Tissue Transglutaminase Ab,IgG Routine Vitamin B12 Routine Date of Encounter: 10/27/18 Time of Encounter: 10:38 - Discharge Diagnosis (1) Acute bacterial prostatitis Priority: Primary Status: Acute (2) Fever Priority: Secondary Status: Acute Qualifiers: Fever type: unspecified Qualified Code(s): R50.9 - Fever, unspecified (3) Fatigue Priority: Secondary Status: Acute Qualifiers: Fatigue type: unspecified Qualified Code(s): R53.83 - Other fatigue (4) Hypertension Priority: Secondary Status: Acute Qualifiers: Hypertension type: essential hypertension Qualified Code(s): I10 - Essential (primary) hypertension (5) GARCIA (acute kidney injury) Priority: Secondary Status: Acute (6) CKD (chronic kidney disease) Priority: Secondary Status: Acute Qualifiers: Chronic kidney disease stage: stage 3 (moderate) Qualified Code(s): N18.3 - Chronic kidney disease, stage 3 (moderate) Hospital course: Mr. Barnett is a 87 year old male with hx of BPH and remote history of prostatitis presents with 1-2 weeks of severe fatigue and fever in the setting of UA growing GNRs. Patient's prostate was nontender on exam, however, very large on imaging, no urinary symptoms, and history of this diagnosis argue for acute bacterial prostatitis over acute cystitis. Because of diagnostic uncertainty, case was discussed with patient's outpatient urologist and infec tious disease was consulted. Underwent extensive imaging without any other obvious source. Patient was prescribed ciprofloxacin for 10 days and and he will follow-up with his urologist on the . At this time, urology can decide to continue for full 4-6 weeks of treatment if patient notes improvement in his symptoms. We will follow cultures to ensure that his infection is sensitive to ciprofloxacin. Of note, also noted to be recently diagnosed with iron deficiency anemia. Says he has iron pills at home and will follow-up with PCP for further workup. Discharge discussed with: patient - Time Spent with Patient Total time spent providing and/or coordinating discharge services: Time spent: Greater than 30 minutes - Discharge Medications Prescriptions: New Ciprofloxacin [Cipro] 500 mg PO DAILY #10 tablet Continued Cholecalciferol (D-3) [Vitamin D] 5,000 unit PO DAILY Vitamin E 400 unit PO DAILY Ubidecarenone [Co Q-10] 100 mg PO DAILY Tamsulosin HCl [Flomax] 0.4 mg PO DAILY Selenium 100 mcg PO DAILY Saw [place] Fruit [Saw [place]] 2 cap PO DAILY [place]-3/Dha/Epa/Fish Oil [[place] 3 500 Softgel] 1 tab PO DAILY Lisinopril [Zestril] 40 mg PO HS Gemfibrozil [Lopid] 600 mg PO DAILY Fexofenadine/Pseudoephedrine [[place]-D 24 Hour Tablet] 1 tab PO DAILY Ascorbic Acid [Vitamin C] 1 tab PO DAILY No Action Vit C/E/Zn/Coppr/Lutein/Zeaxan [Preservision Areds 2 Softgel] 1 cap PO BID Multivit-Min/FA/Lycopen/Lutein [Adults 50+ Multivitamin Tablet] 1 tab PO DAILY Home Medications: Ascorbic Acid [Vitamin C] 1 tab PO DAILY 10/26/18 [History] Cholecalciferol (D-3) [Vitamin D] 5,000 unit PO DAILY 10/26/18 [History] Fexofenadine/Pseudoephedrine [[place]-D 24 Hour Tablet] 1 tab PO DAILY 10/26/18 [History] Gemfibrozil [Lopid] 600 mg PO DAILY 10/26/18 [History] Lisinopril [Zestril] 40 mg PO HS 10/26/18 [History] Multivit-Min/FA/Lycopen/Lutein [Adults 50+ Multivitamin Tablet] 1 tab PO DAILY 10/26/18 [History] [place]-3/Dha/Epa/Fish Oil [[place] 3 500 Softgel] 1 tab PO DAILY 10/26/18 [History] [place] Fruit [Saw [place]] 2 cap PO DAILY 10/26/18 [History] Selenium 100 mcg PO DAILY 10/26/18 [History] Tamsulosin HCl [Flomax] 0.4 mg PO DAILY 10/26/18 [History] Ubidecarenone [Co Q-10] 100 mg PO DAILY 10/26/18 [History] Vit C/E/Zn/Coppr/Lutein/Zeaxan [Preservision Areds 2 Softgel] 1 cap PO BID 10/26/18 [History] Vitamin E 400 unit PO DAILY 10/26/18 [History] Ciprofloxacin [Cipro] 500 mg PO DAILY #10 tablet 10/27/18 [Rx] Allergies/Adverse Reactions: Allergy/AdvReac Type Severity Reaction Status Date / Time morphine AdvReac Hallucinati Verified 10/25/18 21:07 ng Date of admission: 10/26/18 02:10 Primary care physician: PCP NONE Consults: 10/26/18 05:18 Consult to Infectious Diseases [CONS] Routine Consulting Provider: Infectious [facility] [place] Reason for Consult: Fever of unknown origin Call Completed: No - Constitutional Vitals: Temp Pulse Resp BP Pulse Ox 98.0 F 80 18 144/69 93 10/27/18 07:18 10/27/18 07:18 10/27/18 07:18 10/27/18 07:18 10/27/18 07:18 Exam: General: Ill-appearing and in no acute distress HEENT: No erythema of posterior pharynx. No exudates. Lymphatics: No mandibular or cervical lymphadenopathy Cardiovascular: RRR. No murmurs. No chest wall tenderness. Lungs: Clear to auscelltation bilaterally. Regular chest rise. Abdomen: Non-tender. No rebound or gaurding. Nl bowel sounds. Extremities: No edema. 2+ pulses radial and pedal pulses Skin: No rahses, abrasions, or contusions. Nl cap refill. Psych: Nl attention. A&Ox3 Neuro: report checker II-XII intact. 5/5 strength. Sensation to light touch and pinprick intact. - Patient Status Disposition: Home, Self-Care Functional capacity at discharge: independent ambulation Overall status at discharge: patient is progressing back to baseline - Discharge Instructions Follow Up With: Katie Ladd CNP [Advanced Practice Nurse] - 10/28/18 12:30 pm (Please follow up as schedule...) NONE,PCP [Primary Care Provider] - Wilman Good MD [Partnered Physician] - 11/04/18 2:30 pm (Please follow up as schedule...) - Diet and Activity Activity: increase activity as tolerated Diet: advance to your usual diet
[2018-10-27 11:10] VITALS: BP 132/71
[2018-10-29 10:55] LABS: Tissue Transglutaminase IgA 1 U/mL (0-3)
[2018-10-30 11:09] LABS: Tissue Transglutaminase IgG 1 U/mL (0-5)
== END 2018-10-27 11:48 | disposition home or self-care (01) ==
LOC: 2ANU 21:04 → EMEROOARM 21:04 → SUATTDRO 10-26 02:10 → 2ANU 10-26 02:42
PROVIDERS: ADMIT Internal Medicine Nephrology; ATTEND Internal Medicine